=== PATIENT | male | born 1980 | race Two or more races ===

== ENCOUNTER 2017-09-13 13:47 | Emergency (ER) | payer SELFPAY ==
[~2017-09-13] VITALS: Ht 167.6 cm; Wt 70.3 kg
[2017-09-13] MEDS ORDERED: IBUPROFEN 600 MG TAB PO ONE ×2 (14:05→14:15)
[2017-09-13 14:43] VITALS: BP 145/99
[2017-09-13] MEDS ORDERED: KETOROLAC TROMETH 60MG/2ML VIAL IM ONE (15:00)
== END 2017-09-13 15:45 | disposition home or self-care (01) ==
LOC: EDBD 13:47 → ER 13:47
DX: S52.571A Other intraarticular fracture of lower end of right radius, initial encounter for closed fracture (principal); W19.XXXA Unspecified fall, initial encounter; Y93.01 Activity, walking, marching and hiking; Y92.89 Other specified places as the place of occurrence of the external cause; Y99.8 Other external cause status
CPT/HCPCS: 29125; 73130; 96372; 99284; J1885